=== PATIENT | male | born 1980 | race American Indian/Alaskan Native ===

== ENCOUNTER 2018-08-09 00:42 | Emergency (ER) | payer BC ==
[2018-08-09 01:04] VITALS: BMI 26.6
[2018-08-09 01:06] VITALS: TEMP 97.4
[2018-08-09] MEDS ORDERED: TDAP Vaccine 0.5 mL Syr IM ONE (01:12)
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
[2018-08-09] MEDS ORDERED: Lidocaine 1% Inj (20ml) ONE (04:10)
[2018-08-09 05:05] VITALS: BP 120/71; PULSE 85; RESP 13; O2SAT 97
--- NOTE | 2018-08-09 09:33 | CT ---
Date of service: 08/09/2018 PROCEDURE: CT HEAD WITHOUT CONTRAST. HISTORY: trauma COMPARISON: None available. TECHNIQUE: Axial computed tomography images were obtained through the head/brain without intravenous contrast. Radiation dose: Total exam DLP = 980.5 mGy-cm. This CT exam was performed using one or more of the following dose reduction techniques: Automated exposure control, adjustment of the mA and/or kV according to patient size, and/or use of iterative reconstruction technique. FINDINGS: HEMORRHAGE: No intracranial hemorrhage. BRAIN: No mass effect or edema. No atrophy or chronic microvascular ischemic changes. VENTRICLES: Unremarkable. No hydrocephalus. CALVARIUM: Unremarkable. PARANASAL SINUSES: Unremarkable as visualized. No significant inflammatory changes. MASTOID AIR CELLS: Unremarkable as visualized. No inflammatory changes. OTHER FINDINGS: None. IMPRESSION: Normal CT of the Head.
--- NOTE | 2018-08-09 09:43 | CT ---
Date of service: 08/09/2018 PROCEDURE: CT MAXILLOFACIAL BONES WITHOUT CONTRAST HISTORY: trauma COMPARISON: None available. TECHNIQUE: Contiguous axial CT images of the maxillofacial bones were obtained. Coronal and sagittal reformats were generated. Radiation dose: Total exam DLP = 888.75 mGy-cm. This CT exam was performed using one or more of the following dose reduction techniques: Automated exposure control, adjustment of the mA and/or kV according to patient size, and/or use of iterative reconstruction technique. FINDINGS: NASAL BONES: Unremarkable. ORBITS: Unremarkable. PARANASAL SINUSES/ MASTOIDS: Mild chronic inflammatory changes. MAXILLA: Unremarkable. MANDIBLE/ TEMPOROMANDIBULAR JOINTS: Unremarkable. SKULL BASE: Unremarkable. TEMPORAL BONES: Middle ears and mastoid grossly unremarkable. OTHER FINDINGS: None. IMPRESSION: No fracture.
== END 2018-08-09 05:06 | disposition home or self-care (01) ==
LOC: ED 00:42
DX: S01.81XA Laceration without foreign body of other part of head, initial encounter (principal); S09.93XA Unspecified injury of face, initial encounter; W19.XXXA Unspecified fall, initial encounter; F10.129 Alcohol abuse with intoxication, unspecified; M79.5 Residual foreign body in soft tissue; Z23 Encounter for immunization

== ENCOUNTER 2018-08-13 12:03 | Emergency (ER) | payer BC ==
[2018-08-13 12:03] VITALS: BMI 26.6
[2018-08-13 12:17] VITALS: BP 117/77; PULSE 83; RESP 18; TEMP 98.8; O2SAT 98
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
== END 2018-08-13 13:01 | disposition home or self-care (01) ==
LOC: ED 12:03
DX: Z48.02 Encounter for removal of sutures (principal)